=== PATIENT | female | born 1960 | race Caucasian/White ===

== ENCOUNTER 2022-06-23 15:05 | Emergency (ER) | payer BC ==
[~2022-06-23] VITALS: Wt 63.5 kg
== END 2022-06-23 16:40 | disposition home or self-care (01) ==
LOC: ED 15:05
DX: S61.451A Open bite of right hand, initial encounter (principal); S61.452A Open bite of left hand, initial encounter; W54.0XXA Bitten by dog, initial encounter; Y93.89 Activity, other specified; Y92.89 Other specified places as the place of occurrence of the external cause; Y99.8 Other external cause status